=== PATIENT | female | born 1965 | race Caucasian/White ===

== ENCOUNTER 2017-09-08 09:11 | Outpatient (CLI) | payer OTHER | END 2017-09-08 09:12 | disposition home or self-care (01) | LOC: BICMAMMO 09:11 | PROVIDERS: ATTEND Internal Medicine Medical Oncology | DX: Z08 Encounter for follow-up examination after completed treatment for malignant neoplasm (principal); Z85.3 Personal history of malignant neoplasm of breast; R92.2 Inconclusive mammogram | CPT/HCPCS: 77066; G0279 ==

== ENCOUNTER 2018-09-09 08:55 | Outpatient (CLI) | payer OTHER ==
--- NOTE | 2018-09-09 09:58 | MMO ---
MAMMO Bilat Diag [facility]. CLINICAL HISTORY: Patient is 53 years old and is seen for diagnostic exam. The patient has no family history of breast cancer. The patient has a history of Ultrasound Guided Core Biopsy procedure revealed invasive ductal right breast carcinoma in September,; malignant (generic) in the right breast in September,; Excisional Breast Biopsy procedure revealed invasive ductal right breast carcinoma in October, and Skin cancer. The patient has a history of right Ultrasound Guided Core Biopsy in September, and right Lumpectomy in September, - malignant. VIEWS: The views performed were: bilateral craniocaudal with tomosynthesis; bilateral mediolateral oblique with tomosynthesis; bilateral mediolateral; and right exaggerated craniocaudal. FILMS COMPARED: The present examination has been compared to prior imaging studies performed at [facility] on 07/04/2003, 06/10/2006, 12/16/2012, 05/02/2014, 08/02/2015, 08/26/2016 and 09/08/2017, at [facility] on 12/01/2000, and at [facility] on 11/13/2012. MAMMOGRAM FINDINGS: The breasts are heterogeneously dense, which could obscure a lesion on mammography. Finding 1: There is a stable round mass seen in the left breast. The mass was shown to be a cyst on ultrasound. Finding 2: There are benign appearing calcifications seen in both breasts. There are no suspicious masses, calcifications or areas of architectural distortion. IMPRESSION: ALL ABOVE FINDINGS ARE BENIGN. A ROUTINE FOLLOW-UP MAMMOGRAM IN 1 YEAR IS RECOMMENDED. THE RESULTS OF THIS EXAM WERE SENT TO THE PATIENT. ACR BI-RADS Category 2 - Benign finding MAMMOGRAPHY NOTE: 1. A negative mammogram report should not delay a biopsy if a dominant of clinically suspicious mass is present. 2. Approximately 10% to 15% of breast cancers are not detected by mammography. 3. Adenosis and dense breasts may obscure an underlying neoplasm.
== END 2018-09-09 08:56 | disposition home or self-care (01) ==
LOC: BICMAMMO 08:55
PROVIDERS: ATTEND Internal Medicine Medical Oncology
DX: Z08 Encounter for follow-up examination after completed treatment for malignant neoplasm (principal); Z85.3 Personal history of malignant neoplasm of breast
CPT/HCPCS: 77066; G0279

== ENCOUNTER 2019-09-12 09:10 | Outpatient (CLI) | payer OTHER ==
--- NOTE | 2019-09-12 10:14 | MMO ---
Bilateral MAMMO Bilat Diag [facility]. CLINICAL HISTORY: Patient is 54 years old and is seen for diagnostic exam. The patient has no family history of breast cancer. The patient has a history of Ultrasound guided core biopsy procedure revealed invasive ductal right breast carcinoma in September,; malignant (generic) in the right breast in September,; excisional breast biopsy procedure revealed invasive ductal right breast carcinoma in October, and Skin cancer. The patient has a history of right Ultrasound Guided Core Biopsy in September, and right Lumpectomy in September, - malignant. VIEWS: The views performed were: bilateral craniocaudal with tomosynthesis; bilateral mediolateral oblique with tomosynthesis; and bilateral mediolateral with tomosynthesis. FILMS COMPARED: The present examination has been compared to prior imaging studies performed at [facility] on 08/26/2016, 09/08/2017 and 09/09/2018. This study has been interpreted with the assistance of computer-aided detection. MAMMOGRAM FINDINGS: The breasts are heterogeneously dense, which could obscure a lesion on mammography. Finding 1: There are stable benign appearing calcifications seen in both breasts. Finding 2: There is a stable post-surgical scar seen in the right breast. There are no suspicious masses, suspicious calcifications, or new areas of architectural distortion. IMPRESSION: THERE IS NO MAMMOGRAPHIC EVIDENCE OF MALIGNANCY. A ROUTINE FOLLOW-UP MAMMOGRAM IN 1 YEAR IS RECOMMENDED. THE RESULTS OF THIS EXAM WERE SENT TO THE PATIENT. ACR BI-RADS Category 2 - Benign finding MAMMOGRAPHY NOTE: 1. A negative mammogram report should not delay a biopsy if a dominant of clinically suspicious mass is present. 2. Approximately 10% to 15% of breast cancers are not detected by mammography. 3. Adenosis and dense breasts may obscure an underlying neoplasm. Reported by: LI BLOOM MD Electonically Signed: [id number]
--- NOTE | 2019-09-12 10:42 | BD ---
DEXA BONE DENSITY STUDY: Date: 09/12/2019 HISTORY: Osteoporosis screening. Unspecified menopausal and perimenopausal disorder. COMPARISON: None. FINDINGS: Lumbar Spine: BMD (g/cm2) L1 0.837 T-Score: -1.4 Z-Score: -0.4 L2 0.914 T-Score: -1.0 Z-Score: 0.0 L3 0.970 T-Score: -1.0 Z-Score: 0.1 L4 0.976 T-Score: -0.8 Z-Score: 0.4 L1-L4 0.928 T-Score: -1.1 Z-Score: 0.0 Left Femoral Neck: 0.782 T-Score: -0.6 Z-Score: 0.5 Total Femur: 0.971 T-Score: 0.2 Z-Score: 0.9 WHO Classification: Osteopenia. 10 Year Fracture Risk: Major osteoporotic fracture: 12% Hip fracture: 0.8% IMPRESSION: Osteopenia with fracture risk as above. POS: OFF
== END 2019-09-12 09:11 | disposition home or self-care (01) ==
LOC: BICMAMMO 09:10
PROVIDERS: ATTEND Internal Medicine Medical Oncology
DX: Z08 Encounter for follow-up examination after completed treatment for malignant neoplasm (principal); Z13.820 Encounter for screening for osteoporosis; M85.88 Other specified disorders of bone density and structure, other site; Z85.3 Personal history of malignant neoplasm of breast; Z78.0 Asymptomatic menopausal state
CPT/HCPCS: 77066; 77080; G0279

== ENCOUNTER 2019-12-22 09:59 | Outpatient (CLI) | payer OTHER ==
--- NOTE | 2019-12-22 11:04 | RAD ---
LUMBAR SPINE 2 VIEWS: Date: 12/22/2019 PROVIDED CLINICAL HISTORY: Low back pain. FINDINGS: Five non-rib bearing lumbar-type vertebral bodies are present. Lumbar alignment appears normal. Verte bral body heights appear preserved. Disc space narrowing and end plate degenerative changes are seen at L4-5. End plate degenerative changes are seen at l5-S1. Lower lumbar spine facet arthritis. Pedicl es appear intact. SI joints appear symmetric. Vascular calcification is noted. IMPRESSION: Lower lumbar disc and facet degenerative change. POS: WALTER
== END 2019-12-22 10:00 | disposition home or self-care (01) ==
LOC: BICRAD 09:59
PROVIDERS: ATTEND Family Medicine
DX: M54.5 Low back pain (principal); M51.36 Other intervertebral disc degeneration, lumbar region
CPT/HCPCS: 72100

== ENCOUNTER 2020-01-25 08:42 | Outpatient (CLI) | payer OTHER ==
--- NOTE | 2020-01-25 10:38 | MRI ---
MRI LUMBAR SPINE NONCONTRAST: HISTORY: Patient feels her back is uncomfortable with pain, burning and tingling. COMPARISON: None. FINDINGS: Appropriate T1 marrow signal intensity of the lumbar vertebra. Lumbar spine vertebral body heights ar e maintained. No fracture. No significant STIR hyperintensity to suggest vertebral body edema or ligamentous injury. Appropriate signal intensity of the paraspinal muscles and solid organs. Left extrarenal pelvis is no brian. Conus medullaris terminates at the L1-L2 disc space. There are type II Modic changes at the L5-S1 disc space. Spondylolisthesis: L2-L3: 2.8 mm of retrolisthesis. L3-L4: 3.4 mm of retrolisthesis. T12-L1:Adequate disc hydration. No significant central canal stenosis or significant neural foraminal narrowing. L1-L2:Minimal desiccation with mild loss of disc space height. Broad-based disc bulge with resultant mild central canal stenosis. Bilaterally, neural foramina are patent. L2-L3:Adequate disc hydration. No significant loss of disc space height. Broad-based disc bulge, liga ment flavum thickening and facet hypertrophy result in mild central canal stenosis. Bilaterally, neural foramina are patent. L3-L4:Minimal desiccation with minimal loss of disc space height. Broad-based disc bulge, ligament fl avum thickening and facet hypertrophy with mild central canal stenosis. Mild bilateral foraminal narrowing due to disc material. L4-L5:Minimal desiccation with minimal loss of disc space height. Broad-based disc bulge, ligament fl avum thickening and facet hypertrophy. There is a T2 and STIR hyperintensity along the posterior annulus compatible with an annular fissure. Overall there is mild central canal stenosis. Mild bilat eral foraminal narrowing. L5-S1:Desiccation with moderate to severe loss of disc space height. Broad-based disc bulge minimally abuts the ventral thecal sac. No significant central canal stenosis. There is bilateral facet hypertrophy. Moderate bilateral neural foraminal narrowing due to disc material and facet hypertrophy . IMPRESSION: 1. Spondylolisthesis as detailed above. 2. Type II Modic changes at L5-S1. 3. Minimal desiccation without significant loss of disc space height at L1-L2, L3-L4 and L4-L5. There does appear to be a small annular fissure at the L4-L5 level. 4. Multilevel mild central canal stenosis as detailed above. 5. Moderate bilateral neural foraminal narrowing at L5-S1. Transcribed Date/Time: 01/25/2020 10:55 AM
== END 2020-01-25 08:43 | disposition home or self-care (01) ==
LOC: BICMRI 08:42
PROVIDERS: ATTEND Nurse Practitioner Family
DX: M51.16 Intervertebral disc disorders with radiculopathy, lumbar region (principal); M43.16 Spondylolisthesis, lumbar region; M48.061 Spinal stenosis, lumbar region without neurogenic claudication; M48.07 Spinal stenosis, lumbosacral region
CPT/HCPCS: 72148

== ENCOUNTER 2020-09-20 08:00 | Outpatient (CLI) | payer OTHER ==
[2020-09-20] MEDS ORDERED: Iopamidol-370 76% 500 ML 1 ML ONE (14:43)
== END 2020-09-20 08:01 | disposition home or self-care (01) ==
LOC: BICMAMMO 08:00
PROVIDERS: ATTEND Internal Medicine Medical Oncology
DX: Z08 Encounter for follow-up examination after completed treatment for malignant neoplasm (principal); R91.1 Solitary pulmonary nodule; Z85.3 Personal history of malignant neoplasm of breast
CPT/HCPCS: 71260; 77066; G0279; Q9967

== ENCOUNTER 2022-09-26 09:50 | Outpatient (CLI) | payer OTHER | END 2022-09-26 09:51 | disposition home or self-care (01) | LOC: BICMAMMO 09:50 | PROVIDERS: ATTEND Internal Medicine Medical Oncology | DX: Z12.31 Encounter for screening mammogram for malignant neoplasm of breast (principal); N63.20 Unspecified lump in the left breast, unspecified quadrant; Z85.3 Personal history of malignant neoplasm of breast; Z85.828 Personal history of other malignant neoplasm of skin; Z98.890 Other specified postprocedural states | CPT/HCPCS: 77067 ==

== ENCOUNTER 2022-09-30 08:47 | Outpatient (CLI) | payer OTHER | END 2022-09-30 08:48 | disposition home or self-care (01) | LOC: BICMAMMO 08:47 | PROVIDERS: ATTEND Internal Medicine Medical Oncology | DX: N63.21 Unspecified lump in the left breast, upper outer quadrant (principal) | CPT/HCPCS: G0279 ==